=== PATIENT | male | born 1985 | race Caucasian/White ===

== ENCOUNTER 2017-08-17 09:30 | Emergency (ER) | payer SELFPAY ==
[~2017-08-17] VITALS: Ht 162.6 cm; Wt 81.6 kg
[2017-08-17 10:21] VITALS: BP 112/63
[2017-08-17] MEDS ORDERED: SERT50TA PO (10:21)
[2017-08-17] MEDS ORDERED: LORA10TA3 PO (10:21)
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
--- NOTE | 2017-08-17 11:22 | RAD ---
Exam: Left shoulder radiograph Indication: Pain following a fall Comparison: None available Technique: 3 views of the left shoulder are provided. Findings: There is no acute fracture or dislocation involving the glenohumeral and acromioclavicular joints. No joint space narrowing. No soft tissue swelling. No osseous erosion or soft tissue gas. Bone mineralization is within normal limits. Impression: No acute fracture or dislocation.
== END 2017-08-17 11:47 | disposition home or self-care (01) ==
LOC: ER 09:30
DX: S40.212A Abrasion of left shoulder, initial encounter (principal); S80.212A Abrasion, left knee, initial encounter; S50.312A Abrasion of left elbow, initial encounter; S00.01XA Abrasion of scalp, initial encounter; F41.9 Anxiety disorder, unspecified; W18.39XA Other fall on same level, initial encounter; Y93.89 Activity, other specified; Y92.89 Other specified places as the place of occurrence of the external cause; Y99.8 Other external cause status
CPT/HCPCS: 73030; 99284

== ENCOUNTER 2018-08-26 16:13 | Emergency (ER) | payer BC ==
[~2018-08-26] VITALS: Ht 167.6 cm; Wt 84.8 kg
[~2018-08-26 16:13] MED LIST: LORA10TA3 PO; SERT50TA PO
[2018-08-26 16:14] VITALS: BP 135/76
[2018-08-26] MEDS ORDERED: FLUT9.9S NS (16:33)
[2018-08-26] MEDS ORDERED: CETI1TAB7 PO (16:33)
[2018-08-26] MEDS ORDERED: BENZ100C PO (16:33)
--- NOTE | 2018-08-26 16:33 | PHYS DOC ---
Past Medical History Past Medical History: Anxiety Past Surgical History: Other Additional Past Surgical Histo: hernia repair Alcohol Use: Occasionally Drug Use: None Adult General Chief Complaint Chief Complaint: SORE THROAT HPI HPI Patient is a 33 year old male with history of anxiety who presents today complaining of cough, nasal congestion, sneezing, sore throat, for 3 days. Patient is also complaining of diarrhea for the same amount of day. Denies any fever. Denies any history of smoking. Patient is in the ED with a doctor with similar symptoms. Review of Systems Review of Systems Constitutional: Denies fever or chills [] Eyes: Denies change in visual acuity, redness, or eye pain [] HENT: Reports nasal congestion, denies sore throat [] Respiratory: Reports cough, denies shortness of breath [] Cardiovascular: No additional information not addressed in HPI [] GI: Reports diarrhea. Denies abdominal pain, nausea, vomiting, bloody stools : Denies dysuria or hematuria [] Musculoskeletal: Denies back pain or joint pain [] Integument: Denies rash or skin lesions [] Neurologic: Denies headache, focal weakness or sensory changes [] All other systems were reviewed and found to be within normal limits, except as documented in this note. Allergies Allergies Allergies Coded Allergies Type Severity Reaction Last Updated Verified No Known Drug Allergies 08/17/17 No Physical Exam Physical Exam Constitutional: Well developed, well nourished, no acute distress, non-toxic appearance. [] HENT: Normocephalic, atraumatic, bilateral external ears normal, oropharynx moist, no oral exudates, nose normal. [] Eyes: PERRLA, EOMI, conjunctiva normal, no discharge. [] Neck: Normal range of motion, no tenderness, supple, no stridor. [] Cardiovascular:Heart rate regular rhythm, no murmur [] Lungs & Thorax: Bilateral breath sounds clear to auscultation [] Abdomen: Bowel sounds normal, soft, no tenderness, no masses, no pulsatile masses. [] Skin: Warm, dry, no erythema, no rash. [] Back: No tenderness, no CVA tenderness. [] Extremities: No tenderness, no cyanosis, no clubbing, ROM intact, no edema. [] Neurologic: Alert and oriented X 3, normal motor function, normal sensory function, no focal deficits noted. [] Psychologic: Affect normal, judgement normal, mood normal. [] EKG EKG [] Radiology/Procedures Radiology/Procedures [] Course & Med Decision Making Course & Med Decision Making Pertinent Labs and Imaging studies reviewed. (See chart for details) This is a 33-year-old male patient presenting to the ED today with complaints of sore throat, coughing, nasal congestion, and diarrhea for 3 days. Symptoms are likely viral. Patient is in no distress. Will be discharged with instructions to take [id number] cold medications. Follow-up with his own PCP in 1-2 weeks. Dragon Disclaimer Dragon Disclaimer This electronic medical record was generated, in whole or in part, using a voice recognition dictation system. Departure Departure Impression: Primary Impression: Cough Additional Impressions: URI (upper respiratory infection) Diarrhea Disposition: HOME, SELF-CARE Condition: STABLE Referrals: UNKNOWN PCP NAME (PCP) follow up with your doctor in one week Patient Instructions: Cough, Adult, [id number]-[id number], Diarrhea, Nzwa-wa-Ystv, Upper Respiratory Infection, Adult Additional Instructions: You were evaluated in the emergency room with symptoms consistent of viral illness or seasonal allergies the diarrhea could likely come from viral illness or something you ate. Take [id number] medications for cold and allergy medications. Use saltwater gargles. Follow-up with the primary care doctor in 1- 2 weeks. Take Tylenol/Motrin for pain or fever Scripts Benzonatate (TESSALON PERLE) 100 Mg Capsule 1 CAP PO TID, #30 CAP Prov: ARINA RUIZ APRN 08/26/18 Fluticasone Propionate (Flonase Allergy Relief) 9.9 Ml Rice.susp 2 SPRAYS NS DAILY, #1 BOTTLE Prov: ARINA RUIZ APRN 08/26/18 Cetirizine Hcl/Pseudoephedrine (ZYRTEC-D TABLET) 1 Each Tab.er.12h 1 TAB PO BID, #30 TAB Prov: ARINA RUIZ APRN 08/26/18 Problem Qualifiers Additional Impressions: URI (upper respiratory infection) URI type: unspecified URI Qualified Codes: J06.9 - Acute upper respiratory infection, unspecified Diarrhea Diarrhea type: unspecified type Qualified Codes: R19.7 - Diarrhea, unspecified ARINA RUIZ APRN Aug 26, 2018 16:33
== END 2018-08-26 16:50 | disposition home or self-care (01) ==
LOC: ER 16:13
DX: J06.9 Acute upper respiratory infection, unspecified (principal); R19.7 Diarrhea, unspecified
CPT/HCPCS: 99283

== ENCOUNTER 2018-09-06 19:55 | Emergency (ER) | payer BC ==
[~2018-09-06] VITALS: Ht 162.6 cm; Wt 85.3 kg
[~2018-09-06 19:55] MED LIST changes: +BENZ100C PO; +CETI1TAB7 PO; +FLUT9.9S NS
[2018-09-06 20:05] VITALS: BP 132/80
--- NOTE | 2018-09-06 20:50 | PHYS DOC ---
Past Medical History Past Medical History: No Pertinent History Past Surgical History: Other Additional Past Surgical Histo: HERNIA Alcohol Use: Occasionally Drug Use: None Adult General Chief Complaint Chief Complaint: LOWER BACK PAIN OR INJURY HPI HPI Patient is a 33 year old male who presents to the ER with complaints of low back pain since yesterday afternoon. Pt denies any known injury or fall. He denies any saddle anesthesia, loss of bowel or bladder control. Pt states that pain increases with movement. Pt states that on he had lifted several heavy pallets but denies feeling any pain at that time. Review of Systems Review of Systems Constitutional: Denies fever or chills GI: Denies saddle anesthesia, abdominal pain, nausea, vomiting, or diarrhea : denies dysuria, hematuria, or difficulty voiding Musculoskeletal: reports low back pain without injury Neurologic: Denies headache, focal weakness or sensory changes [] All other systems were reviewed and found to be within normal limits, except as documented in this note. Allergies Allergies Allergies Coded Allergies Type Severity Reaction Last Updated Verified No Known Drug Allergies 08/17/17 No Physical Exam Physical Exam Constitutional: Well developed, well nourished, no acute distress, non-toxic appearance. [] HENT: Normocephalic, atraumatic, bilateral external ears normal, nose normal. [] Eyes: PERRLA, conjunctiva normal, no discharge. [] Skin: Warm, dry, no erythema, no rash. [] Back: No bony tenderness Extremities: No cyanosis, no clubbing, ROM intact, no edema. [] Neurologic: Alert and oriented X 3, normal motor function, normal sensory function, no focal deficits noted. [] Psychologic: Affect normal, judgement normal, mood normal. [] Current Patient Data Vital Signs Vital Signs Date Time Temp Pulse Resp B/P (MAP) Pulse Ox O2 Delivery O2 Flow Rate FiO2 09/06/18 20:05 97.5 76 16 132/80 (97) 99 97.5 EKG EKG [] Radiology/Procedures Radiology/Procedures [] Course & Med Decision Making Course & Med Decision Making Pertinent Labs and Imaging studies reviewed. (See chart for details) Dx: low back pain, low back strain Pt refused IM injections for pain relief. Prescriptions written for naproxen and orphenadrine. Pt ambulates with steady gait. Encouraged application of ice or heat for comfort, activity as tolerated. Follow up with PCP next week if sx persist, return to ER if sx worsen. Patient verbalized an understanding of home care, medications, follow-up, and return to ED instructions and was in agreement with the plan of care. [] Dragon Disclaimer Dragon Disclaimer This electronic medical record was generated, in whole or in part, using a voice recognition dictation system. Departure Departure Impression: Primary Impression: Low back pain Disposition: HOME, SELF-CARE Condition: STABLE Referrals: UNKNOWN PCP NAME (PCP) Patient Instructions: Back Pain, Adult, [id number] Additional Instructions: Fill prescriptions and use as directed. Apply heat or ice for comfort. Activity as tolerated. Follow up with your PCP next week, return to the ER if your symptoms worsen. Scripts Naproxen (NAPROXEN) 500 Mg Tablet 500 MG PO BID for 10 Days, #20 TAB 0 Refills Prov: GIOVANNY YEN APRN 09/06/18 Orphenadrine Citrate (ORPHENADRINE CITRATE) 100 Mg Tablet.er 100 MG PO BID PRN for PAIN for 10 Days, #20 TAB.SR 0 Refills Prov: GIOVANNY YEN APRN 09/06/18 Problem Qualifiers Primary Impression: Low back pain Chronicity: acute Back pain laterality: bilateral Sciatica presence: without sciatica Qualified Codes: M54.5 - Low back pain GIOVANNY YEN APRN Sep 06, 2018 20:50
[2018-09-06] MEDS ORDERED: NAPR-514 PO (20:58)
[2018-09-06] MEDS ORDERED: ORPH100T PO (20:58)
== END 2018-09-06 21:04 | disposition home or self-care (01) ==
LOC: ER 19:55
DX: M54.5 Low back pain (principal)
CPT/HCPCS: 99283

== ENCOUNTER 2021-11-30 13:00 | Emergency (ER) | payer SELFPAY ==
[~2021-11-30] VITALS: Ht 177.8 cm; Wt 79.0 kg
[~2021-11-30 13:00] MED LIST changes: +NAPR-514 PO; +ORPH100T PO
--- NOTE | 2021-11-30 14:44 | PHYS DOC ---
Past Medical History Past Medical History: No Pertinent History Past Surgical History: Other Additional Past Surgical Histo: HERNIA Smoking Status: Never Smoker Alcohol Use: Occasionally Drug Use: None General Adult EDM: Chief Complaint: FLU SYMPTOM HPI: HPI: Patient is a 36-year-old male who presents to the emergency department for subjective fevers, chills, sore throat, cough that started 2 days ago. Patient had a positive Covid exposure on November 24. Patient is not vaccinated for COVID-19. No treatment prior to arrival. Patient denies any shortness of breath, nausea, vomiting, diarrhea, loss of taste or smell. His vital signs are stable, he is afebrile in no acute distress. Review of Systems: Review of Systems: Constitutional: See HPI HENT: See HPI Respiratory: See HPI GI: See HPI Heart Score: C/O Chest Pain: No Risk Factors: Risk Factors: DM, Current or recent (<one month) smoker, HTN, HLP, family history of CAD, obesity. Risk Scores: Score 0 - 3: 2.5% MACE over next 6 weeks - Discharge Home Score 4 - 6: 20.3% MACE over next 6 weeks - Admit for Clinical Observation Score 7 - 10: 72.7% MACE over next 6 weeks - Early Invasive Strategies Allergies: Allergies: Allergies Coded Allergies Type Severity Reaction Last Updated Verified No Known Drug Allergies 08/17/17 No Physical Exam: PE: Constitutional: Well developed, well nourished, no acute distress, non-toxic appearance. [] HENT: Normocephalic, atraumatic, bilateral external ears normal, oropharynx lizz st, no oral exudates, nose normal. [] Eyes: PERRL, EOMI, conjunctiva normal, no discharge. [] Neck: Normal range of motion, no tenderness, supple, no stridor. [] Cardiovascular:Heart rate regular rhythm, no murmur [] Lungs & Thorax: Bilateral breath sounds clear to auscultation [] Abdomen: Bowel sounds normal, soft, no tenderness, no masses, no pulsatile masses. [] Skin: Warm, dry, no erythema, no rash. [] Back: normal ROM Extremities: No tenderness, no cyanosis, no clubbing, ROM intact, no edema. [] Neurologic: Alert and oriented X 3, normal motor function, normal sensory function, no focal deficits noted. [] Psychologic: Affect normal, judgement normal, mood normal. [] EKG: EKG: [] Radiology/Procedures: Radiology/Procedures: [] Course & Med Decision Making: Course & Med Decision Making Pertinent Labs and Imaging studies reviewed. (See chart for details) Patient presents to the emergency department for fever, chills, sore throat and a cough after being exposed to a Covid positive person. Patient be tested for COVID-19 and influenza. Patient's influenza test was negative. Covid test was positive. I offered a chest x-ray for patient to rule out pneumonia and he declined. He was also educated on symptomatic treatment. Patients vital signs are stable, he is not tachycardic or hypoxic. I discussed with patient all findings and diagnostic testing as well as the need to follow-up with PCP for further evaluation and treatment or return to the ER if any new or worsening symptoms. Strict return precautions were also discussed at length. Patient voiced understanding and agreement with the plan. Patient is hemodynamically stable at the time of disposition. Eugenio Disclaimer: Eugenio Disclaimer: This electronic medical record was generated, in whole or in part, using a voice recognition dictation system. Departure Departure Impression: Primary Impression: COVID-19 Disposition: 01 HOME / SELF CARE / HOMELESS Condition: GOOD Referrals: UNKNOWN PCP NAME (PCP) Patient Instructions: Cough, Adult Additional Instructions: He was seen in the emergency department for fevers, chills, cough, sore throat. Please take Tylenol and/ibuprofen for your fevers or body aches. You can do warm salt water gargles for your sore throat. Your rapid influenza test was negative. Your Covid test was positive. I would purchase a pulse oximeter and monitor your oxygen saturations at home and return to the emergency department if your oxygen saturation drops below 90%. Increase your fluids and rest. Follow-up with your primary care provider tomorrow regarding your ER visit. Please return to the emergency department if you develop shortness of breath, chest pain, high fevers refractory to treatment, intractable nausea or vomiting. You have been tested for or diagnosed with COVID-19. It is an infection caused by a new type of coronavirus. COVID-19 will cause cold-like or mild flu symptoms in most. It can cause more severe symptoms like problems breathing in some. There is no treatment for COVID-19. The body will clear the infection over time. Self-care will help to ease discomfort. Steps to Take: Self-Care Rest as needed. Healthy habits may help you feel better. Steps include: Choose healthy foods including fruits and vegetables. Drink water throughout the day. Get plenty of sleep each night. If you smoke, try to quit. It may ease breathing. Avoid alcohol. Keep Others Healthy The virus can spread to others. Droplets are released every time you sneeze or cough. The droplets can get into the mouth, nose, or eyes of people near you and lead to infection. To lower the chances of spreading COVID-19 to others: Stay at home until your doctor has said it is safe to leave. If you tested positive this will mean staying isolated until both of the following are true: At least 7 days have passed since the start of illness. You are free of fever for at least 72 hours without the use of medicine. During this time: - Avoid public areas, events, or transportation. Do not return to work or school until your doctor has said it is safe to do so. - Call ahead if you need to go to a medical center. Let them know you may have COVID-19. It will help them guide you where to go. They may also ask you to wear a facemask when you come to the office. - If you call for emergency medical services, let them know you may have COVID- 19. While at home: - Try to avoid close contact with others. Stay about 6 feet away. - If possible, spend most of your time in a separate room from others. - Use a face mask if you will be in close contact with others such as sharing a room or vehicle. - Have someone wipe down common surfaces in the home. Use household configuration consultant every day on areas like doorknobs, counters, or sinks. - Cough or sneeze into a tissue. Throw the tissue away right after use. If a t issue is not available, cough or sneeze into your elbow. - Wash your hands often. Wash them after sneezing or coughing. Use soap and water and wash for at least 20 seconds. Alcohol based hand trolley cleaner can be used if soap and water is not available. - Do not prepare food for others. Avoid sharing personal items like forks, spoons, or toothbrushes. - Avoid close contact with pets while you are sick. There is no evidence of the virus passing to pets. This is a safety step until more is known about this virus. Isolation can be frustrating. Social interaction can help. Keep in touch with friends and family through phone and tech options. You can still interact with others in your home, just keep a safe distance of about 6 feet. Follow-up: Your doctors office will check in with you to see if there are any changes in your health. You may be asked to keep track of symptoms to share with them. They will also let you know when you are clear to be in public again. Problems to Look Out For: Contact your doctor if your recovery is not going as you expect. Get emergency care if you have problems such as: - Trouble breathing - Nonstop chest pain or pressure - Changes in awareness, confusion, or problems waking - Lips or face have bluish color - Worsening of symptoms If you think you have an emergency, call for emergency medical services right away. [place] taken [place] [facility] [place] APRN Nov 30, 2021 14:44
[2021-11-30 15:17] LABS: INFLUENZA A PATIENT NEGATIVE (NEGATIVE); INFLUENZA B PATIENT NEGATIVE (NEGATIVE)
[2021-11-30 15:40] VITALS: BP 136/76
== END 2021-11-30 15:40 | disposition home or self-care (01) ==
LOC: ER 13:00
DX: U07.1 COVID-19 (principal)
CPT/HCPCS: 87426; 87804; 99283; 99284